=== PATIENT | male | born 1945 | race African-American/Black ===

== ENCOUNTER 2016-12-20 17:42 | Emergency (ER) | payer MEDICARE, OTHER ==
[~2016-12-20] VITALS: Ht 180.3 cm; Wt 105.0 kg
[2016-12-20 17:45] VITALS: BP 130/85
== END 2016-12-20 20:15 | disposition left against medical advice (07) ==
LOC: ER 18:27
DX: Z53.21 Procedure and treatment not carried out due to patient leaving prior to being seen by health care provider (principal)

== ENCOUNTER 2017-12-13 11:58 | Emergency (ER) | payer MEDICARE ==
[~2017-12-13] VITALS: Ht 182.9 cm; Wt 82.0 kg
[~2017-12-13 11:58] MED LIST: HYDR25TA PO; MULT-230 PO
[2017-12-13] MEDS ORDERED: LIDOCAINE HCL 1% 20ML VIAL (Pyxis) INJ MC ONE (12:30)
[2017-12-13] MEDS ORDERED: TETANUS, DIPHTHERIA, PERTUSSIS VAC/PF 0.5ML (>7YR OLD) IM ONE (12:30)
[2017-12-13] MEDS ORDERED: BACITRACIN ZINC OINT UDPKT TOP ONE (12:30)
[2017-12-13 15:59] VITALS: BP 140/85
== END 2017-12-13 16:03 ==
LOC: ER 11:58
DX: L72.3 Sebaceous cyst (principal); I10 Essential (primary) hypertension; I25.10 Atherosclerotic heart disease of native coronary artery without angina pectoris; F17.210 Nicotine dependence, cigarettes, uncomplicated
CPT/HCPCS: 10060; 87070; 87205; 90471; 90715; 99285; J3490

== ENCOUNTER 2023-11-06 08:40 | Inpatient (IN) | payer MEDICARE, MEDICAID ==
[~2023-11-06] VITALS: Ht 182.9 cm; Wt 88.9 kg
[2023-11-06] MEDS ORDERED: ELIQUIS (08:46)
[2023-11-06] MEDS ORDERED: ASPIRIN (08:46)
[2023-11-06] MEDS ORDERED: AMLODIPINE (08:46)
[2023-11-06] MEDS ORDERED: METOPROLOL (08:46)
[2023-11-06 09:33] LABS: HEMATOCRIT. 41.8 % (42.0-52.0); HEMOGLOBIN. 13.8 g/dL (14.0-18.0); MEAN CORPUSCULAR HEMOGLOBIN 30.9 pg (28.0-32.0); MEAN CORPUSCULAR VOLUME 93.7 fL (80.0-94.0); MEAN PLATELET VOLUME 8.7 fl (7.4-10.4); PLATELET 237 x1000/uL (130-400); RED BLOOD CELL COUNT 4.47 mill/uL (4.7-6.1); WHITE BLOOD COUNT 10.4 x1000/uL (4.5-11.0)
[2023-11-06 09:39] LABS: DIFFERENTIAL COMMENT 1
[2023-11-06 09:40] LABS: CHLORIDE 105 mEq/L (98-107); POTASSIUM 4.3 mEq/L (3.5-5.1); SODIUM 137 mEq/L (136-145)
[2023-11-06 09:41] LABS: CARBON DIOXIDE 31 mEq/L (21-32)
[2023-11-06 09:47] LABS: AMMONIA 19 uMol/L (<32); CREATININE 0.9 mg/dL (0.6-1.3); GLUCOSE 127 mg/dL (70-105); UREA NITROGEN BLOOD 15 mg/dL (9-23)
[2023-11-06 09:48] LABS: ALANINE AMINOTRANSFERASE 7 IU/L (10-49); ASPARTATE AMINOTRANSFERASE 15 IU/L (<34)
[2023-11-06 09:49] LABS: ACETAMINOPHEN < 2 ug/mL (10-30); ALBUMIN 3.8 g/dL (3.2-4.8); BILIRUBIN TOTAL 0.9 mg/dL (0.1-1.0); PROTEIN TOTAL 6.6 g/dL (6.0-8.3)
[2023-11-06 09:51] LABS: THYROID STIMULATING HORMONE 3.49 uIU/mL (0.55-4.78)
[2023-11-06] MEDS: CEFTRIAXONE 1GM/50ML 50 ML IV ONE (09:53)
[2023-11-06] MEDS: SODIUM CHLORIDE 0.9% 1000ML BAG (SEPSIS BOLUS) IV ONE (09:54)
[2023-11-06 10:00] LABS: ETHANOL BLOOD < 10 mg/dL (<10)
[2023-11-06 10:01] LABS: TROPONIN I HIGH SENSITIVITY 141 ng/L (3.0-53)
[2023-11-06 10:35] LABS: PLATELET ESTIMATE NORMAL
[2023-11-06] MEDS ORDERED: ONDANSETRON HCL 4MG/2ML INJ IV PRN (11:30)
[2023-11-06] MEDS ORDERED: ACETAMINOPHEN 325MG TABLET PO PRN ×2 (11:30)
[2023-11-06] MEDS ORDERED: IPRATROPIUM/ALBUTEROL 0.5-3(2.5)MG/3ML NEB HHN PRN (11:30)
[2023-11-06] MEDS ORDERED: DOCUSATE SODIUM 100MG CAPSULE PO PRN (11:30)
[2023-11-06] MEDS ORDERED: CLONIDINE 0.1MG TABLET PO PRN (11:30)
[2023-11-06] MEDS ORDERED: GUAIFENESIN 200MG/10ML SUGAR FREE UDC PO PRN (11:30)
[2023-11-06] MEDS: HALOPERIDOL LACTATE 5MG/ML VIAL IM ONE (11:50)
[2023-11-06] MEDS: ASPIRIN 325MG EC TABLET PO NR (12:00)
[2023-11-06 12:01] LABS: CLARITY URINE CLEAR (CLEAR); COLOR URINE YELLOW (YELLOW); GLUCOSE URINE NEGATIVE (NEGATIVE); KETONES URINE TRACE (NEGATIVE); LEUKOCYTE ESTERASE URINE NEGATIVE (NEGATIVE); NITRITE URINE NEGATIVE (NEGATIVE); OCCULT BLOOD URINE NEGATIVE (NEGATIVE); PROTEIN URINE NEGATIVE (NEGATIVE); SPECIFIC GRAVITY URINE 1.015 (1.005-1.030)
[2023-11-06 12:03] LABS: IRON 29 ug/dL (65-175)
[2023-11-06 12:04] LABS: TRIGLYCERIDE 48 mg/dL (0-150)
[2023-11-06 12:05] LABS: LDL CHOLESTEROL 55 mg/dL (5-100)
[2023-11-06 12:06] LABS: CHOLESTEROL 110 mg/dL (<200); HDL CHOLESTEROL 51 mg/dL (>55); TOTAL IRON BINDING CAPACITY 303 ug/dl (250-425)
[2023-11-06 13:00] LABS: *AMPHETAMINES SCREEN URINE NEGATIVE (NEGATIVE); *BARBITURATES SCREEN URINE NEGATIVE (NEGATIVE); *BENZODIAZEPINES SCREEN URINE NEGATIVE (NEGATIVE); *COCAINE SCREEN URINE NEGATIVE (NEGATIVE)
[2023-11-06 13:01] LABS: CANNABINOID URINE SCREEN NEGATIVE (NEGATIVE); ECSTASY MDMA SCREEN URINE NEGATIVE (NEGATIVE); METHADONE URINE SCREEN NEGATIVE (NEGATIVE); OPIATES URINE SCREEN NEGATIVE (NEGATIVE); PHENCYCLIDINE URINE SCREEN NEGATIVE (NEGATIVE)
[2023-11-06 13:24] LABS: FOLIC ACID (FOLATE) SERUM > 20.00 ng/mL (>5.38); VITAMIN B12 SERUM 303 pg/mL (211-911)
[2023-11-06] MEDS: ENOXAPARIN 80MG/0.8ML SYR SUBCUT NR (13:29)
[2023-11-06] MEDS: LORAZEPAM 0.5MG TABLET PO PRN (14:32)
[2023-11-06 14:40] VITALS: BP 140/80; PULSE 91; RESP 20; TEMP 97.7
[2023-11-06 15:34] VITALS: BP 140/80; PULSE 91; RESP 20; TEMP 97.7
[2023-11-06 16:00] VITALS: BP 131/84; PULSE 89; RESP 20; TEMP 97.7
[2023-11-06] MEDS ORDERED: ENOXAPARIN 40MG/0.4ML SYR SUBCUT SCH (18:00)
[2023-11-06 18:48] LABS: INR 1.1; PROTHROMBIN TIME 11.7 sec (9.6-11.0)
[2023-11-06 20:00] VITALS: BP 93/57; PULSE 76; RESP 20; TEMP 97.5
[2023-11-07] VITALS: BP 127/77; PULSE 79; RESP 21; TEMP 97.8
[2023-11-07 01:05] LABS: CREATINE KINASE MB FRACTION 1.2 ng/mL (0.5-3.6)
[2023-11-07 04:00] VITALS: BP 149/89; PULSE 81; RESP 21; TEMP 98.2
[2023-11-07 06:06] LABS: HEMATOCRIT 41.7 % (42.0-52.0); HEMOGLOBIN 14.1 g/dL (14.0-18.0); MEAN CORPUSCULAR HEMOGLOBIN 31.6 pg (28.0-32.0); MEAN CORPUSCULAR HGB CONC 33.8 g/dL (31.0-37.0); MEAN CORPUSCULAR VOLUME 93.5 fL (80.0-94.0); PLATELET 209 x1000/uL (130-400); RED BLOOD CELL COUNT 4.46 mill/uL (4.7-6.1); RED CELL DISTRIBUTION WIDTH 13.8 % (11.6-14.6)
[2023-11-07 06:29] LABS: CALCIUM 9.7 mg/dL (8.7-10.4); CARBON DIOXIDE 22 mEq/L (21-32); CHLORIDE 107 mEq/L (98-107); POTASSIUM 4.2 mEq/L (3.5-5.1); SODIUM 138 mEq/L (136-145)
[2023-11-07 06:34] LABS: CREATININE 0.8 mg/dL (0.6-1.3); GLUCOSE 76 mg/dL (70-105)
[2023-11-07 06:35] LABS: UREA NITROGEN BLOOD 12 mg/dL (9-23)
[2023-11-07 06:37] LABS: PHOSPHORUS 2.8 mg/dL (2.5-4.9)
[2023-11-07 08:00] VITALS: BP 162/83; PULSE 111; RESP 20; TEMP 98.3
[2023-11-07] MEDS: PANTOPRAZOLE SODIUM 40 MG/VIAL IV SCH (08:26)
[2023-11-07] MEDS: AMLODIPINE 5MG TABLET PO SCH (09:55)
[2023-11-07 12:00] VITALS: BP 131/80; PULSE 114; RESP 18; TEMP 99.8
[2023-11-07] MEDS: METOPROLOL SUCCINATE 25MG ER TABLET PO NR (12:10)
[2023-11-07 16:00] VITALS: BP 144/94; PULSE 109; RESP 20; TEMP 98.8
[2023-11-07] MEDS: DOCUSATE SODIUM 100MG CAPSULE PO SCH (17:00)
[2023-11-07 20:00] VITALS: BP 132/82; PULSE 129; RESP 20; TEMP 98.1
[2023-11-08] VITALS: BP 160/91; PULSE 101; RESP 20; TEMP 98.8
[2023-11-08 04:00] VITALS: BP 142/94; PULSE 110; RESP 20; TEMP 96.1
[2023-11-08 06:30] LABS: HEMATOCRIT 43.3 % (42.0-52.0); HEMOGLOBIN 14.7 g/dL (14.0-18.0); MEAN CORPUSCULAR HEMOGLOBIN 31.4 pg (28.0-32.0); MEAN CORPUSCULAR HGB CONC 33.9 g/dL (31.0-37.0); MEAN CORPUSCULAR VOLUME 92.6 fL (80.0-94.0); PLATELET 251 x1000/uL (130-400); RED BLOOD CELL COUNT 4.67 mill/uL (4.7-6.1); RED CELL DISTRIBUTION WIDTH 14.1 % (11.6-14.6); WHITE BLOOD COUNT 9.3 x1000/uL (4.5-11.0)
[2023-11-08 07:04] LABS: CARBON DIOXIDE 27 mEq/L (21-32); CHLORIDE 104 mEq/L (98-107); POTASSIUM 3.5 mEq/L (3.5-5.1); SODIUM 140 mEq/L (136-145)
[2023-11-08 07:05] LABS: CALCIUM 10.2 mg/dL (8.7-10.4)
[2023-11-08 07:07] LABS: CREATININE 0.7 mg/dL (0.6-1.3)
[2023-11-08 07:09] LABS: GLUCOSE 78 mg/dL (70-105)
[2023-11-08 07:10] LABS: UREA NITROGEN BLOOD 10 mg/dL (9-23)
[2023-11-08 07:12] LABS: PHOSPHORUS 2.6 mg/dL (2.5-4.9)
[2023-11-08 08:00] VITALS: BP 135/85; PULSE 108; RESP 18; TEMP 98.1
[2023-11-08] MEDS: ASPIRIN 81MG TABLET PO SCH (08:04)
[2023-11-08] MEDS: METOPROLOL SUCCINATE 50MG ER TABLET PO SCH (08:06)
[2023-11-08 12:00] VITALS: BP 116/70; PULSE 99; RESP 18; TEMP 97.8
[2023-11-08 16:00] VITALS: BP 129/74; PULSE 106; RESP 18; TEMP 97.7
[2023-11-08 20:00] VITALS: BP 151/90; PULSE 121; RESP 20; TEMP 98.4
[2023-11-08] MEDS ORDERED: ENOXAPARIN 100MG/ML SYR SUBCUT SCH (20:00)
[2023-11-08] MEDS: ENOXAPARIN 100MG/ML SYR SUBCUT SCH (21:06)
[2023-11-09] VITALS: BP 135/81; PULSE 116; RESP 16; TEMP 97.8
[2023-11-09 04:22] VITALS: BP 150/75; PULSE 62; RESP 18; TEMP 97.8
[2023-11-09 06:16] LABS: HEMATOCRIT. 46.2 % (42.0-52.0); HEMOGLOBIN. 15.3 g/dL (14.0-18.0); MEAN CORPUSCULAR HEMOGLOBIN 31.1 pg (28.0-32.0); MEAN CORPUSCULAR HGB CONC 33.1 g/dL (31.0-37.0); MEAN PLATELET VOLUME 8.6 fl (7.4-10.4); PLATELET 240 x1000/uL (130-400); RED BLOOD CELL COUNT 4.92 mill/uL (4.7-6.1); RED CELL DISTRIBUTION WIDTH 14.3 % (11.6-14.6); WHITE BLOOD COUNT 9.7 x1000/uL (4.5-11.0)
[2023-11-09 06:20] LABS: CARBON DIOXIDE 23 mEq/L (21-32); CHLORIDE 106 mEq/L (98-107); SODIUM 138 mEq/L (136-145)
[2023-11-09 06:21] LABS: CALCIUM 10.4 mg/dL (8.7-10.4)
[2023-11-09 06:25] LABS: CREATININE 0.8 mg/dL (0.6-1.3)
[2023-11-09 06:26] LABS: GLUCOSE 91 mg/dL (70-105); UREA NITROGEN BLOOD 10 mg/dL (9-23)
[2023-11-09 06:28] LABS: PHOSPHORUS 2.6 mg/dL (2.5-4.9)
[2023-11-09 06:52] LABS: DIFFERENTIAL COMMENT 1
[2023-11-09 08:00] VITALS: BP 142/84; PULSE 62; RESP 18; TEMP 97.7
[2023-11-09 12:00] VITALS: BP 129/82; PULSE 72; RESP 18; TEMP 97.8
[2023-11-09 12:18] LABS: T4 FREE 1.27 ng/dL (0.89-1.76); THYROID STIMULATING HORMONE 3.33 uIU/mL (0.55-4.78)
[2023-11-09 15:22] LABS: PLATELET ESTIMATE NORMAL
[2023-11-09 16:00] VITALS: BP 126/84; PULSE 60; RESP 18; TEMP 98.1
[2023-11-09 20:00] VITALS: BP 120/66; PULSE 102; RESP 20; TEMP 97.6
[2023-11-10] VITALS: BP 118/60; PULSE 82; RESP 18; TEMP 98.6
[2023-11-10 04:00] VITALS: BP 130/74; PULSE 105; RESP 20; TEMP 98.2
[2023-11-10 08:00] VITALS: BP 108/67; PULSE 99; RESP 20; TEMP 97.7
[2023-11-10] MEDS: FAMOTIDINE 20MG/2ML VIAL IV SCH (09:29)
[2023-11-10 12:00] VITALS: BP 100/63; PULSE 105; RESP 20; TEMP 99.3
[2023-11-10 16:00] VITALS: BP 134/85; PULSE 104; RESP 20; TEMP 98.4
[2023-11-10 20:00] VITALS: BP 130/66; PULSE 70; RESP 20; TEMP 98.4
[2023-11-11] VITALS: BP 130/80; PULSE 70; RESP 20; TEMP 98.4
[2023-11-11 04:00] VITALS: BP 130/80; PULSE 82; RESP 18; TEMP 98.4
[2023-11-11 05:55] LABS: MEAN CORPUSCULAR HGB CONC 33.8 g/dL (31.0-37.0); MEAN CORPUSCULAR VOLUME 91.8 fL (80.0-94.0); MEAN PLATELET VOLUME 8.6 fl (7.4-10.4); PLATELET 256 x1000/uL (130-400); RED BLOOD CELL COUNT 4.08 mill/uL (4.7-6.1); RED CELL DISTRIBUTION WIDTH 13.7 % (11.6-14.6); WHITE BLOOD COUNT 9.1 x1000/uL (4.5-11.0)
[2023-11-11 06:02] LABS: CARBON DIOXIDE 26 mEq/L (21-32); CHLORIDE 107 mEq/L (98-107); POTASSIUM 3.6 mEq/L (3.5-5.1); SODIUM 139 mEq/L (136-145)
[2023-11-11 06:03] LABS: CALCIUM 10.1 mg/dL (8.7-10.4)
[2023-11-11 06:08] LABS: CREATININE 0.7 mg/dL (0.6-1.3); GLUCOSE 98 mg/dL (70-105); UREA NITROGEN BLOOD 15 mg/dL (9-23)
[2023-11-11 08:07] VITALS: BP 126/72; PULSE 97; RESP 20; TEMP 97.2
[2023-11-11] MEDS: FAMOTIDINE 20MG TABLET PO SCH (08:21)
[2023-11-11 08:40] LABS: DIFFERENTIAL COMMENT 1
[2023-11-11 08:42] LABS: HEMATOCRIT. 37.4 % (42.0-52.0); HEMOGLOBIN. 12.7 g/dL (14.0-18.0)
[2023-11-11 10:55] VITALS: BP 126/72; PULSE 97; TEMP 97.2; O2SAT 95
[2023-11-11 11:47] VITALS: BP 98/60; PULSE 93; RESP 20; TEMP 98
[2023-11-11 16:18] VITALS: BP 113/65; PULSE 102; RESP 20; TEMP 98.1
[2023-11-11 16:50] LABS: PLATELET ESTIMATE NORMAL
== END 2023-11-11 17:20 | DRG 91 ==
LOC: ER 09:34 → 8WST 12:01 → EDBEDREQ 12:03 → EDBEDREQTM 12:03
PROVIDERS: ADMIT Internal Medicine; ATTEND Internal Medicine
DX: G92.8 Other toxic encephalopathy (principal); I21.4 Non-ST elevation (NSTEMI) myocardial infarction; F03.94 Unspecified dementia, unspecified severity, with anxiety; I11.0 Hypertensive heart disease with heart failure; F03.90 Unspecified dementia, unspecified severity, without behavioral disturbance, psychotic disturbance, mood disturbance, and anxiety; I25.10 Atherosclerotic heart disease of native coronary artery without angina pectoris; I48.91 Unspecified atrial fibrillation; I50.9 Heart failure, unspecified; Z86.73 Personal history of transient ischemic attack (TIA), and cerebral infarction without residual deficits; Z79.01 Long term (current) use of anticoagulants; Z79.899 Other long term (current) drug therapy
CPT/HCPCS: 36415; 71045; 80048; 80053; 80061; 80305; 80307; 80320; 80329; 81003; 82140; 82550; 82553; 82607; 82746; 83036; 83540; 83550; 83605; 83735; 84100; 84145; 84439; 84443; 84484; 85025; 85027; 85379; 92610; 93005; 93306; 93970; 97162; 97166; 99291; C9113; J0696; J1630; J1650; J3490; J7030; G0480

== ENCOUNTER 2023-12-24 02:01 | Emergency (ER) | payer MEDICARE, MEDICAID ==
[~2023-12-24] VITALS: Ht 182.9 cm; Wt 77.0 kg
[~2023-12-24 02:01] MED LIST changes: +AMLODIPINE; +ASPIRIN; +ELIQUIS; +METOPROLOL
[2023-12-24 02:14] VITALS: O2SAT 98
[2023-12-24 02:42] VITALS: TEMP 97.5
[2023-12-24] MEDS: ACETAMINOPHEN 325MG TABLET PO ONE (02:54)
[2023-12-24] MEDS ORDERED: ACET-2708 MT (04:50)
[2023-12-24 06:38] VITALS: BP 125/83; PULSE 94; RESP 16
== END 2023-12-24 06:46 ==
LOC: ER 02:01
DX: S01.111A Laceration without foreign body of right eyelid and periocular area, initial encounter (principal); I25.2 Old myocardial infarction; I10 Essential (primary) hypertension; Z00.00 Encounter for general adult medical examination without abnormal findings; Z79.82 Long term (current) use of aspirin; Z98.890 Other specified postprocedural states; W01.0XXA Fall on same level from slipping, tripping and stumbling without subsequent striking against object, initial encounter; Y93.89 Activity, other specified; Y92.89 Other specified places as the place of occurrence of the external cause; Y99.8 Other external cause status
CPT/HCPCS: 12011; 73130; 99284